=== PATIENT | male | born 1955 | race African-American/Black ===

== ENCOUNTER 2016-06-15 07:53 | Emergency (ER) | payer SELFPAY ==
[~2016-06-15] VITALS: Ht 182.9 cm; Wt 72.0 kg
[~2016-06-15 07:53] MED LIST: SULF1TAB24 PO
[2016-06-15] MEDS ORDERED: SODIUM CHLORIDE 0.9% 1,000ML IVBOLUS ONE (09:30)
[2016-06-15] MEDS ORDERED: SODIUM CHLORIDE FLUSH 10ML SYR IVF ONE (09:30)
[2016-06-15 09:39] LABS: ASPARTATE AMINO TRANSFERASE 10 U/L (15-37); BLOOD UREA NITROGEN 21 mg/dL (7-18)
[2016-06-15 09:46] LABS: IS PT STATUS REG ER OR PRE ER? YES
[2016-06-15 10:25] VITALS: BP 121/94
[2016-06-15] MEDS ORDERED: OMNIPAQUE 350 MG/ML, 100ML BOTTLE ONE (10:30)
== END 2016-06-15 12:49 | disposition home or self-care (01) ==
LOC: ED 08:58
DX: K59.00 Constipation, unspecified (principal); R10.12 Left upper quadrant pain; I10 Essential (primary) hypertension; F17.210 Nicotine dependence, cigarettes, uncomplicated; R07.9 Chest pain, unspecified; R06.02 Shortness of breath
CPT/HCPCS: 36415; 71010; 74177; 80053; 81003; 82010; 83605; 83690; 84484; 85025; 85610; 93005; 96360; 99285; J7030; Q9967

== ENCOUNTER 2018-03-27 05:13 | Observation (INO) | payer MEDICAID ==
[~2018-03-27] VITALS: Ht 182.9 cm; Wt 70.0 kg
[~2018-03-27 05:13] MED LIST changes: +APIX5TAB PO
[2018-03-27] MEDS ORDERED: KETOROLAC 30 MG/1 ML IVPush ONE (05:30)
[2018-03-27] MEDS ORDERED: SODIUM CHLORIDE FLUSH 10ML SYR IVF ONE (05:30)
[2018-03-27] MEDS ORDERED: KETOROLAC 30 MG/1 ML ONE (05:35)
--- NOTE | 2018-03-27 05:35 | NUR ---
cta pending lab/creatine
[2018-03-27 05:40] LABS: BASOPHILS # (AUTO) 0.06 x10^3/uL (0-0.1); BASOPHILS % (AUTO) 1 % (0-1); EOSINOPHILS % (AUTO) 1 % (1-7); LYMPHOCYTES # (AUTO) 2.83 x10^3/uL (1-3.4); LYMPHOCYTES % (AUTO) 30 % (22-44); MD NO; MEAN CORPUSCULAR HEMOGLOBIN 29.4 pg (27.5-34.5); MEAN CORPUSCULAR HGB CONC 33.4 g/dL (33.2-36.2); MEAN PLATELET VOLUME 8.9 fL (7.4-10.4); MONOCYTES # (AUTO) 0.89 x10^3/uL (0.2-0.8); MONOCYTES % (AUTO) 9 % (2-9); NEUTROPHILS # (AUTO) 5.63 x10^3/uL (1.8-6.8); NEUTROPHILS % (AUTO) 59 % (42-75); PLATELET COUNT 229 x10^3/uL (130-400); RED BLOOD COUNT 4.75 x10^6/uL (4.38-5.82); RED CELL DISTRIBUTION WIDTH 15.9 % (9.4-14.8)
--- NOTE | 2018-03-27 05:40 | NUR ---
PT IN HOSPITAL GOWN. PT ON ALL MONITORS. AWAITING TO GO TO CTA. PT MEDICATED FOR PAIN. BILAT BEDRAILS UP.
[2018-03-27 05:54] LABS: ALANINE AMINOTRANSFERASE 15 U/L (12-78); ALBUMIN 3.1 g/dL (3.4-5.0); ANION GAP 9 mmol/L (5-15); CALCIUM 8.2 mg/dL (8.5-10.1); CHLORIDE 109 mmol/L (98-107); CREATININE 1.35 mg/dL (0.7-1.3)
[2018-03-27 05:58] LABS: ALKALINE PHOSPHATASE 143 U/L (45-117); BILIRUBIN,TOTAL 0.5 mg/dL (0.2-1.0); TOTAL PROTEIN 6.8 g/dL (6.4-8.2); TROPONIN I < 0.015 ng/mL (0.000-0.045)
[2018-03-27] MEDS ORDERED: OMNIPAQUE 350 MG/ML, 100ML BOTTLE ONE (06:26)
--- NOTE | 2018-03-27 06:45 | NUR ---
PT RESTING IN BED. NO C/O PAIN AT THIS TIME. AWAITING CTA RESULTS.
--- NOTE | 2018-03-27 06:58 | NUR ---
REPORT RECEIVED FROM NOC RN, patient safe in bed with stable vitals, he is resting quietly, reports no additional needs at this time.
--- NOTE | 2018-03-27 07:02 | NUR ---
BEDSIDE REPORT TO TAMIA Zimmerman RN
--- NOTE | 2018-03-27 07:24 | NUR ---
CTA results back with small Lower Left lobe PE, plan of care discussed with Peggy HODGE ordered, patient ambulatory to bathroom approx 5 minutes ago, no acute changes noted/reported.
[2018-03-27] MEDS ORDERED: ENOXAPARIN 80 MG/0.8 ML ONE (07:27)
[2018-03-27] MEDS ORDERED: ENOXAPARIN 80 MG/0.8 ML SQ ONE (07:30)
--- NOTE | 2018-03-27 07:34 | NUR ---
MEDICATED PER MAR, R upper chest anterior chest pain 7/10 on deep inspiration, call light in reach, vss
[2018-03-27] MEDS ORDERED: LABETALOL 5MG/ML, 20ML IVPush PRN (08:00)
[2018-03-27] MEDS ORDERED: Enoxaparin 1 mg/kg protocol SQ SCH (08:00)
[2018-03-27] MEDS ORDERED: ACETAMINOPHEN 325 MG TABLET PO PRN (08:00)
[2018-03-27] MEDS: NICOTINE 7 MG/24 HR PATCH.TD24 TD SCH (08:00)
[2018-03-27] MEDS ORDERED: GABAPENTIN 300 MG CAPSULE PO PRN (08:00)
[2018-03-27] MEDS ORDERED: hydrALAzine 20 MG/ML, 1ML IVPush PRN (08:00)
[2018-03-27] MEDS ORDERED: DOCUSATE 100 MG CAPSULE PO PRN (08:00)
[2018-03-27] MEDS ORDERED: BISACODYL 10 MG SUPP PR PRN (08:00)
[2018-03-27] MEDS ORDERED: POLYETHYLENE GLYCOL 17 GM PACKET PO PRN (08:00)
[2018-03-27 08:40] LABS: INTERNATIONAL NORMALIZED RATIO 1.1 (0.93-1.1); PROTHROMBIN TIME 11.6 Seconds (9.6-11.5)
[2018-03-27 08:46] LABS: FREE T4 (FREE THYROXINE) 1.02 ng/dL (0.76-1.46); TROPONIN I < 0.015 ng/mL (0.000-0.045)
[2018-03-27 08:48] LABS: CULTURE INDICATED? NO; MICROSCOPIC NOT IND
[2018-03-27 08:52] LABS: THYROID STIMULATING HORMONE 0.822 mIU/L (0.358-3.740)
[2018-03-27] MEDS: SODIUM CHLORIDE 0.9% 1,000 ML IV SCH ×2 (11:39→21:14)
[2018-03-27] MEDS ORDERED: ENOXAPARIN 80 MG/0.8 ML SQ SCH (12:00)
[2018-03-27 12:39] VITALS: BP 153/94
[2018-03-27 13:40] VITALS: BP 170/102
[2018-03-27 14:23] LABS: TROPONIN I < 0.015 ng/mL (0.000-0.045)
[2018-03-27 19:17] VITALS: BP 156/89
[2018-03-27] MEDS: ENOXAPARIN 80 MG/0.8 ML SQ SCH (21:14)
[2018-03-27 23:54] VITALS: BP 146/85
[2018-03-28 05:49] LABS: BASOPHILS # (AUTO) 0.05 x10^3/uL (0-0.1); BASOPHILS % (AUTO) 1 % (0-1); EOSINOPHILS # (AUTO) 0.13 x10^3/uL (0-0.4); EOSINOPHILS % (AUTO) 1 % (1-7); LYMPHOCYTES # (AUTO) 2.21 x10^3/uL (1-3.4); LYMPHOCYTES % (AUTO) 23 % (22-44); MD NO; MEAN CORPUSCULAR HGB CONC 32.8 g/dL (33.2-36.2); MEAN CORPUSCULAR VOLUME 88.5 fL (81-97); MEAN PLATELET VOLUME 9.1 fL (7.4-10.4); MONOCYTES # (AUTO) 0.75 x10^3/uL (0.2-0.8); MONOCYTES % (AUTO) 8 % (2-9); NEUTROPHILS # (AUTO) 6.62 x10^3/uL (1.8-6.8); NEUTROPHILS % (AUTO) 68 % (42-75); PLATELET COUNT 230 x10^3/uL (130-400); RED BLOOD COUNT 4.62 x10^6/uL (4.38-5.82); RED CELL DISTRIBUTION WIDTH 16.1 % (9.4-14.8)
[2018-03-28 06:03] LABS: ALBUMIN 2.6 g/dL (3.4-5.0); ANION GAP 8 mmol/L (5-15); CALCIUM 8.2 mg/dL (8.5-10.1); CHLORIDE 111 mmol/L (98-107)
[2018-03-28 06:09] LABS: ALANINE AMINOTRANSFERASE 11 U/L (12-78); ALKALINE PHOSPHATASE 121 U/L (45-117); BILIRUBIN,TOTAL 1.1 mg/dL (0.2-1.0); CHOL/HDL RATIO 1.9; CHOLESTEROL, TOTAL 126 mg/dL (140-239); CREATININE 1.37 mg/dL (0.7-1.3); HDL CHOL % 52 % (26-37); HDL CHOLESTEROL (DIRECT) 65 mg/dL (40-60); LDL CHOLESTEROL,CALCULATED 52 mg/dL (54-169); LDL/HDL RATIO 0.8 (0.5-3.0); TOTAL PROTEIN 6.1 g/dL (6.4-8.2); TRIGLYCERIDES 45 mg/dL (50-200); VLDL CHOLESTEROL 9 mg/dL (0-25)
[2018-03-28] MEDS: SODIUM CHLORIDE 0.9% 1,000 ML IV SCH (07:13)
[2018-03-28 07:36] VITALS: BP 162/87
[2018-03-28] MEDS: NICOTINE 7 MG/24 HR PATCH.TD24 TD SCH (07:44)
[2018-03-28] MEDS: ENOXAPARIN 80 MG/0.8 ML SQ SCH (07:45)
[2018-03-28 12:18] VITALS: BP 143/86
[2018-03-28] MEDS ORDERED: RIVA15TA PO (14:31)
== END 2018-03-28 16:57 | disposition home or self-care (01) ==
LOC: ED 07:19 → INTOOBSV 07:20 → EDIP 07:20 → ED 07:27 → 4EST 11:38 → DCLOUNGE 03-28 16:40
PROVIDERS: ADMIT Internal Medicine; ATTEND Internal Medicine
DX: I26.99 Other pulmonary embolism without acute cor pulmonale (principal); N17.9 Acute kidney failure, unspecified; J98.11 Atelectasis; I49.3 Ventricular premature depolarization; I50.30 Unspecified diastolic (congestive) heart failure; R74.8 Abnormal levels of other serum enzymes; Z59.0 Homelessness; Z72.0 Tobacco use; Z86.711 Personal history of pulmonary embolism; Z91.14 Patient's other noncompliance with medication regimen
CPT/HCPCS: 36415; 71045; 71275; 80053; 80061; 81003; 83735; 83880; 84100; 84439; 84443; 84484; 85025; 85610; 93005; 93306; 93970; 96372; 96374; 96375; 99291; G0378; J0360; J1650; J1885; J7030; Q9967